=== PATIENT | female | born 1965 | race Caucasian/White ===

== ENCOUNTER 2016-11-08 22:57 | Emergency (ER) | payer OTHER ==
--- NOTE | ~2016-11-08 | ER ---
PATIENT'S NAME: LALIT CAMERON [facility] AGE: 51 Y [address] ROOM: [place] [address] LOCATION: ED ADMIT DATE: 11/08/2016 ER/Outpatient Report DISCHARGE DATE: 11/09/2016 FAMILY PHYSICIAN: Ricardo Fong MD ATTENDING PHYSICIAN: Ana Almanza Time of Arrival: 2257 hours. Time of Evaluation: 2259 hours. IDENTIFICATION: A 51-year-old female. CHIEF COMPLAINT: Facial numbness, dizziness, and headache. HISTORY OF PRESENT ILLNESS: The patient is a 51-year-old female, who developed symptoms of vertigo approximately 36 hours prior to arrival. She was seen at [facility] today and given a prescription for Antivert as well as for clindamycin because she had a little fluid behind her right ear and a small lesion on her right lower extremity. Tonight earlier this evening, she noted the right side of her face feeling "heavy." Earlier this morning, she noted some numbness on the inside of her cheek on the right side and feels like her face has been a little bit numb throughout the day. No other areas of numbness or tingling or weakness. She does have a slight headache, but it is minimal. She has a history of migraines. ALLERGIES: TO NONSTEROIDALS, , DROPERIDOL, AMOXICILLIN, ALCOHOL, CAFFEINE, STRAWBERRIES, DOXYCYCLINE, PLAQUENIL, COMPAZINE, AND PHENERGAN. CURRENT MEDICATIONS: Include, 1. Methotrexate. 2. Folic acid. 3. Synthroid. 4. Prilosec. 5. Multivitamin. 6. Vitamin E. 7. Vitamin B complex. 8. Calcium with vitamin D. 9. Imitrex p.r.n. 10. Zofran. 11. Atarax. 12. Meclizine p.r.n. PATIENT'S NAME: LALIT CAMERON [facility] AGE: 51 Y [address] ROOM: [place] [address] LOCATION: ED ADMIT DATE: 11/08/2016 ER/Outpatient Report DISCHARGE DATE: 11/09/2016 FAMILY PHYSICIAN: Ricardo Fong MD ATTENDING PHYSICIAN: Ana Almanza. MEDICAL PROBLEMS: History of West Nile virus; migraine headaches; rheumatoid arthritis, managed by Dr. Olivera in [place]; and hypothyroidism. PRIOR SURGERIES: Finger surgery x2 and appendectomy. 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 Tobacco use, denies. Alcohol use, denies. Drug use, denies. FAMILY HISTORY: Mother with lupus. Grandmother with breast cancer. Father with diabetes and coronary artery disease. REVIEW OF SYSTEMS: All systems reviewed and negative other than what is noted in the HPI. The only other thing she added was her symptoms of this heaviness on the right side of her face are worse in the supine position and better when upright. The patient has had no fever. She has no vision changes. PHYSICAL EXAMINATION: VITAL SIGNS: Height 5 feet 9 inches, weight 92.5 kg. Pulse 75, respirations 16, temperature 98.9, saturations 98%, and blood pressure 140/90. HEAD: Normocephalic, atraumatic. EARS: TMs translucent, both ears. EYES: Pupils equal and reactive to light and accommodation. Extraocular movements intact. She does have some slight horizontal nystagmus. NOSE: Mucosa pink. No lesions. MOUTH: No lesions. Pharynx benign. NECK: Supple. No lymphadenopathy. No nuchal rigidity. LUNGS: Clear to auscultation. Breath sounds are equal. HEART: Regular rate and rhythm. No murmur, rub, or gallop. ABDOMEN: Bowel sounds present. Soft, nondistended, nontender. SKIN: [place], warm, and dry. No lesions or rashes noted. NEURO: The patient is alert and oriented x4. Cranial nerves 2 through 12 grossly intact. Motor strength 5/5 throughout. Sensation is slightly diminished to light touch on the right side of her face. She has no facial droop and vision is grossly normal. LABORATORY DATA AND X-RAYS: EKG: Normal sinus rhythm at 75 beats per minute. No acute findings. Chemistry panel is unremarkable. CRP 1.23, which she says has improved from PATIENT'S NAME: LALIT CAMERON [facility] AGE: 51 Y [address] ROOM: [place] [address] LOCATION: ED ADMIT DATE: 11/08/2016 ER/Outpatient Report DISCHARGE DATE: 11/09/2016 FAMILY PHYSICIAN: Ricardo Fong MD ATTENDING PHYSICIAN: Ana Almanza her baseline of 1.8. Sedimentation rate 30, which has also improved from her baseline. CBC otherwise normal. Head CT without contrast normal. TSH 3.050. IMPRESSION AND PLAN: 1. Vertigo. 2. Right-sided facial heaviness and numbness. No acute etiology identified. Discussed with Dr. Duarte, neurologist on-call and she has actually seen him before, and then discussed with Lalit and her significant other. She will be discharged home. Continue her current medications as ordered. Follow up with Dr. Fong as scheduled tomorrow, and follow up with Dr. Duarte this week. She was given a note to remain off work tomorrow. ANA ALMANZA MD CAR/modl /[id number] d: 11/09/16 0250 t: 11/10/16 0549, OUTPATIENT REPORT
[2016-11-08 23:35] LABS: BASOPHIL % 0.3 %; EOSINOPHIL # 0.1 K/uL (0.0-0.5); EOSINOPHIL % 1.6 %; HEMATOCRIT 40.2 % (33.0-46.0); HEMOGLOBIN 13.2 g/dL (10.0-15.0); IMMATURE GRANULOCYTE % 0.2 %; LYMPHOCYTE # 2.9 K/uL (0.8-4.0); LYMPHOCYTE % 33.6 %; MCHC 32.8 gm/dL (32.0-36.5); MCV 97.3 fl (83.0-98.0); MONOCYTE # 0.6 K/uL (0.0-1.0); MONOCYTE % 7.3 %; MPV 9.7 fl (9.4-12.4); NRBC % 0 /100WBC (0-0.00); PLATELET COUNT 282 K/uL (150-450); RBC 4.13 M/uL (3.50-5.50); RDW-CV 14.2 % (11.9-14.6); WBC 8.7 K/uL (4.0-11.0)
[2016-11-08 23:47] LABS: INR - (THERAPEUTIC) 0.92 (0.92-1.07); PROTIME 9.7 SECONDS (9.8-11.4); PTT 26 SECONDS (25-32)
[2016-11-09 00:17] LABS: ALBUMIN 3.5 gm/dL (3.5-5.0); ALK PHOS 65 IU/L (33-138); ALT 24 IU/L (12-78); AST 16 IU/L (10-40); BLOOD UREA NITROGEN 13 mg/dL (6-24); CALCIUM 8.9 mg/dL (8.5-10.5); CHLORIDE 105 mMol/L (96-110); CO2 31 mMol/L (22-32); CREATININE 0.7 mg/dL (0.5-1.1); ESTIMATED GFR (MDRD EQUATION) > 60; SODIUM 142 mMol/L (135-145); TOTAL BILIRUBIN 0.2 mg/dL (0.0-1.5); TOTAL PROTEIN 7.5 g/dL (6.0-8.4)
[2017-03-09] MEDS ORDERED: COMPLEX B-1001 EACH PO (03:37)
[2017-03-09] MEDS ORDERED: THERA-VITE W/ B1 TAB PO (03:38)
[2017-03-09] MEDS ORDERED: OSCAL + D500 MG PO (03:38)
[2017-03-09] MEDS ORDERED: VITAMIN E400 UNI2 PO (03:38)
[2017-03-09] MEDS ORDERED: PRILOSEC20 MG PO (03:40)
[2017-03-09] MEDS ORDERED: LEVOTHROID(SYN75 MCG PO (03:40)
[2017-03-09] MEDS ORDERED: FOLIC ACID1 MG PO (03:41)
[2017-03-09] MEDS ORDERED: METHOTREXA50 MG/2 ML SUB-Q (03:42)
[2017-03-09] MEDS ORDERED: FLEXERIL10 MG PO (10:37)
[2017-03-09] MEDS ORDERED: LIDOCAINE1 EACH TRANS (10:37)
[2017-03-09] MEDS ORDERED: IMITREX50 MG PO (10:38)
[2017-03-09] MEDS ORDERED: TYLENOL EXTRA500 MG PO (19:32)
[2017-03-09] MEDS ORDERED: MEDROL DOSE PACK (19:35)
== END 2016-11-09 00:38 | disposition disaster alternative care site (69) ==
LOC: GMED 22:57
PROVIDERS: Family Medicine
DX: R42 Dizziness and giddiness (principal); R20.0 Anesthesia of skin; E03.9 Hypothyroidism, unspecified; G43.909 Migraine, unspecified, not intractable, without status migrainosus; M06.9 Rheumatoid arthritis, unspecified; Z88.1 Allergy status to other antibiotic agents; Z88.8 Allergy status to other drugs, medicaments and biological substances; Z91.018 Allergy to other foods; Z79.899 Other long term (current) drug therapy

== ENCOUNTER → 2016-11-09 | Outpatient (CLI) | payer OTHER ==
[~2016-11-09] MED LIST: COMPLEX B-1001 EACH PO; FLEXERIL10 MG PO; FOLIC ACID1 MG PO; IMITREX50 MG PO; LEVOTHROID(SYN75 MCG PO; LIDOCAINE1 EACH TRANS; MEDROL DOSE PACK; METHOTREXA50 MG/2 ML SUB-Q; OSCAL + D500 MG PO; PRILOSEC20 MG PO; THERA-VITE W/ B1 TAB PO; TYLENOL EXTRA500 MG PO; VITAMIN E400 UNI2 PO
== END | disposition disaster alternative care site (69) ==
LOC: GRAD 12:58
DX: R42 Dizziness and giddiness (principal); R26.89 Other abnormalities of gait and mobility; J32.2 Chronic ethmoidal sinusitis; R20.2 Paresthesia of skin
CPT/HCPCS: A9577

== ENCOUNTER → 2017-02-15 | Outpatient (CLI) | payer OTHER | END | disposition disaster alternative care site (69) | LOC: GRAD 09:47 | DX: M54.42 Lumbago with sciatica, left side (principal); M47.896 Other spondylosis, lumbar region; M41.9 Scoliosis, unspecified ==